=== PATIENT | female | born 1995 ===

== ENCOUNTER 2017-04-05 05:41 | Day surgery (SDC) | payer BC ==
--- NOTE | 2017-04-04 11:46 | History and Physical Report ---
DATE OF ADMISSION: 04/05/2017 REASON FOR ADMISSION: Outpatient surgery for removal of gallbladder. FINDINGS AND INDICATIONS: The patient is a 21-year-old female, who had a severe episode of epigastric and right upper quadrant abdominal pain on 03/15/2017 of this year. At that point, she was taken to [facility] Emergency room, where some pain medications were given and the patient felt better. An abdominal ultrasound was done, which revealed multiple gallstones, a normal gallbladder wall and a normal size common bile duct. There is no history of jaundice or dark urine. The patient was then advised by her attending physician, to go see a general surgeon and at that time, she and her mother came to the office to see me and I explained to them the indications, risks, benefits, possible complications, possible need for open procedure and the possible need for further procedures should there be any complications and they consented. PAST MEDICAL HISTORY: Pertinent for bipolar disorder. MEDICATIONS: [place], Lamictal and Wellbutrin. ALLERGIES: None, but she is sensitive to Dilaudid, which causes severe nausea and vomiting. REVIEW OF SYSTEMS: HEENT: No headaches or tinnitus. No dysphagia. Cardiopulmonary: No history of chest pain, shortness of breath, cough or sputum production. Gastrointestinal: As above, no reflux symptoms. No diarrhea or constipation. Genitourinary: No dysuria or hematuria. PHYSICAL EXAMINATION: VITAL SIGNS: Blood pressure was 118/70, temperature is 97.8 degrees, pulse is 68, and respirations 18. GENERAL: The patient is a well developed, well nourished, somewhat anxious young female, in no distress. HEENT: Pupils are equal and reactive to light and accommodation. Extraocular movements are intact. No scleral icterus. The mouth and throat are clear. NECK: Supple. The lungs are clear to auscultation. BREASTS: Normal. No masses. ABDOMEN: Soft and flat. There is no abdominal tenderness or mass. No groin adenopathy or hernia. GENITALIA: Deferred. RECTAL: Deferred. EXTREMITIES: Good range of motion. No edema or cyanosis. IMPRESSION: 1. Cholelithiasis with recent severe biliary colic, possible chronic cholecystitis. 2. Bipolar disorder. PLAN: The patient is admitted to undergo an outpatient laparoscopic cholecystectomy, possible open. She and her mother both understand the indications, risks, benefits, possible complications, and they wish to proceed. William Ma M.D. DR: Fay JOB#: [id number] CC:
[2017-04-05] VITALS (10 sets, daily range): BP systolic 105–144; BP diastolic 60–86
[~2017-04-05] VITALS: Ht 165.1 cm; Wt 74.8 kg
[2017-04-05] MEDS ORDERED: LAMICTAL200 MG ORAL (06:21)
[2017-04-05] MEDS ORDERED: LITHIUM CARBON300 M4 PO (06:21)
[2017-04-05] MEDS ORDERED: TAYTULLA 1 MG-1 EACH PO (06:21)
[2017-04-05] MEDS ORDERED: WELLBUTRIN SR150 M1 PO (06:21)
[2017-04-05] MEDS ORDERED: fentaNYL 250mcg/5ml ONE (07:00)
[2017-04-05] MEDS ORDERED: Ketorolac 30mg Inj ONE (07:00)
[2017-04-05] MEDS ORDERED: Nimbex 2mg/ml Inj 10ML IVP ONE (07:00)
[2017-04-05] MEDS ORDERED: LR 1000ml ONE (07:00)
[2017-04-05] MEDS ORDERED: Metoclopramide 10mg/2ml Inj ONE (07:00)
[2017-04-05] MEDS ORDERED: Dexamethasone 4mg/ml vial ONE (07:00)
[2017-04-05] MEDS ORDERED: Midazolam 2mg/2ml Inj ONE (07:00)
[2017-04-05] MEDS ORDERED: Lidocaine 1% MPF 10mg/ml 5ml ONE (07:00)
[2017-04-05] MEDS ORDERED: Glycopyrrolate 0.2mg/ml 1ml Vial ONE (07:00)
[2017-04-05] MEDS ORDERED: Propofol 10mg/ml 20ml IV ONE (07:00)
[2017-04-05] MEDS ORDERED: Neostigmine 1mg/ml 10ml Inj ONE (07:00)
[2017-04-05] MEDS ORDERED: NS Irrig 1000ml ONE (07:00)
[2017-04-05] MEDS ORDERED: Sterile Water Irrig 1000ml IRRIG ONE (07:00)
--- NOTE | 2017-04-05 07:09 | Pre-Procedure Note/Attestation ---
Pre-Procedure Note/Attestation Complete Prior to Procedure Procedure Narrative: laparoscopic cholecystectomy, possible open Indications for Procedure Pre-Operative Diagnosis: cholelithiasis, biliary colic Attestation I attest that I discussed the nature of the procedure; its benefits; risks and complications; and alternatives (and the risks and benefits of such alternatives ), prior to the procedure, with the patient (or the patient's legal outside medical sales representative). I attest that, if there was a reasonable possibility of needing a blood transfusion, the patient (or the patient's legal outside medical sales representative) was given the [facility] standardized written summary, pursuant to the [place] Blood Safety Act ([place] Health and Safety Code # 1645, as amended). I attest that I re-evaluated the patient just prior to the surgery and that there has been no change in the patient's H&P, except as documented below: TEQUILA TAYLOR April 05, 2017 07:09
[2017-04-05] MEDS ORDERED: Bupivacaine w/Epi 0.25% 30ml Vial INJ ONE (07:12)
[2017-04-05] MEDS ORDERED: Isovue-M 300 15ml INJ ONE (07:12)
[2017-04-05] MEDS ORDERED: Lidocaine 1% Plain 30 ml INJ ONE (07:12)
[2017-04-05] MEDS ORDERED: LR 1000ml 1,000 ML IVLG SCH (07:54)
--- NOTE | 2017-04-05 07:54 | Anethesia Preoperative Eval ---
Anesthesia Pre-op PMH/ROS General Date of Evaluation: April 05, 2017 Anesthesiologist: Wilfredo ASA Score: ASA 2 Mallampati Score Class I : Soft palate, uvula, fauces, pillars visible Class II: Soft palate, uvula, fauces visible Class III: Soft palate, base of uvula visible Class IV: Only hard plate visible Mallampati Classification: Class II Surgeon: Anil Diagnosis: Acute cholecystitis Surgical Procedure: Laparoscopic cholecystectomy Anesthesia History: none Family History: no anesthesia problems Allergies: Coded Allergies: No Known Allergies (Unverified , 04/04/17) Medications: see eMAR Past Medical History Cardiovascular: Denies: CAD, HTN, [place], arrhythmia, other, valve dz Pulmonary: Denies: COPD, MARRY, asthma, other Gastrointestinal/Genitourinary: Denies: CRI, ESRD, GERD, other Neurologic/Psychiatric: Reports: depression/anxiety, other - Bipolar, Denies: CVA, TIA, dementia Endocrine: Denies: DM, hypothyroidism, other, steroids HEENT: Denies: NOME (L), NOME (R), cataract (L), cataract (R), glaucoma, other Hematology/Immune: Denies: DVT, anemia, bleeding disorder, other Musculoskeletal/Integumentary: Denies: DDD, DJD, OA, RA, edema, other PSxH Narrative: Denies Anesthesia Pre-op Phys. Exam Physician Exam Last Vital Signs Date Time Temp Pulse Resp B/P Pulse Ox O2 Delivery O2 Flow Rate FiO2 04/05/17 06:26 98.1 77 18 130/85 96 Room Air Constitutional: NAD Cardiovascular: RRR Respiratory: CTA Airway Exam Mallampati Score: Class II MO: full ROM: full Teeth: intact Anesthesia Pre-op A/P Labs see chart Urine Test Test 04/05/17 05:55 Urine HCG, Qualitative Negative Risk Assessment & Plan Assessment: ASA II Plan: GA Status Change Before Surgery: No Pre-Antibiotics Drug: Ancef 1g Given Within 1 Hr of Incision: Yes Time Given: 07:30 KIA LEONARD M.D. April 05, 2017 07:54
[2017-04-05] MEDS ORDERED: Metoclopramide 10mg/2ml Inj IVP PRN (08:00)
[2017-04-05] MEDS ORDERED: Hydromorphone 0.5mg/0.5ml inj IVP PRN (08:00)
[2017-04-05] MEDS ORDERED: LORazepam Inj 2mg/ml 1ml IV PRN (08:00)
[2017-04-05] MEDS ORDERED: fentaNYL 100 mcg/2 mL IV PRN (08:00)
[2017-04-05] MEDS ORDERED: Midazolam 2mg/2ml Inj IVP PRN (08:00)
[2017-04-05] MEDS ORDERED: DiphenhydrAMINE 50mg/ml Inj IVP PRN (08:00)
[2017-04-05] MEDS ORDERED: Ketorolac 30mg Inj IV PRN (08:00)
--- NOTE | 2017-04-05 08:28 | Immediate Post-Op Evaluation ---
Immediate Post-Op Evalulation Immediate Post-Op Evalulation Procedure: Laparoscopic cholecystectomy Date of Evaluation: April 05, 2017 Time of Evaluation: 08:29 IV Fluids: 600 Blood Products: 0 Estimated Blood Loss: min Urinary Output: 0 Blood Pressure Systolic: 110 Blood Pressure Diastolic: 60 Pulse Rate: 89 Respiratory Rate: 16 O2 Sat by Pulse Oximetry: 100 Temperature (Fahrenheit): 97.9 Pain Score (1-10): 0 Nausea: No Vomiting: No Complications 0 Patient Status: awake, reacts, patent, none Hydration Status: adequate Drug: Ancef 1g Given Within 1 Hr of Incision: Yes - 0730 Time Given: 07:30 KIA LEONARD M.D. April 05, 2017 08:28
--- NOTE | 2017-04-05 08:31 | Brief Operative Note ---
Immediate Post Operative Note Operative Note Pre-op Diagnosis: cholelithiasis, biliary colic Procedure: laparoscopic cholecystectomy Post-op Diagnosis: same as pre-op Findings: other - several gallstones Surgeon: arielle Anesthesiologist: malinda Anesthesia: general Specimen: yes - GB Complications: none Condition: stable Estimated Blood Loss: minimal Drains: none Implant(s) used?: No TEQUILA TAYLOR April 05, 2017 08:31
--- NOTE | 2017-04-05 10:40 | 48 Hour Post Anesthesia Eval ---
Post Anesthesia Evaluation Procedure: Laparoscopic cholecystectomy Date of Evaluation: April 05, 2017 Time of Evaluation: 10:05 Blood Pressure Systolic: 119 0: 76 Pulse Rate: 77 Respiratory Rate: 20 Temperature (Fahrenheit): 98.0 O2 Sat by Pulse Oximetry: 95 Airway: patent Nausea: No Vomiting: No Pain Intensity: 1 Hydration Status: adequate Cardiopulmonary Status: at baseline Mental Status/LOC: patient returned to baseline Post-Anesthesia Complications: 0 Follow-up care needed: ready to discharge KIA LEONARD M.D. April 05, 2017 10:40
--- NOTE | 2017-04-05 12:17 | Operative Note - Dictated ---
DATE OF OPERATION: 04/05/2017 SURGEON: William Ma M.D. ALUMINUM BOAT INSPECTOR: Louisa Bueno M.D. ANESTHESIOLOGIST: ANESTHESIA: General endotracheal tube. PREOPERATIVE DIAGNOSES: 1. Cholelithiasis and recent severe biliary colic requiring emergency room visits. POSTOPERATIVE DIAGNOSES: 1. Cholelithiasis and recent severe biliary colic requiring emergency room visits. NAME OF OPERATION: Laparoscopic cholecystectomy. FINDINGS AND INDICATIONS: The patient is a very pleasant 21-year-old female, who came to see me at the office [id number] weeks ago with complaints of severe attack of right upper quadrant and epigastric pain, which was significant enough for her to have to go to the emergency room at [facility]. At that point, an abdominal ultrasound revealed multiple gallstones and the patient's pain resolved with the IV analgesics and oral analgesics and she went home on a low-fat diet. She came to see me at the office with her mother. We had an extensive conversation with diagrams and explanations about the indications, risks, benefits, possible complications, possible need for open procedure and she consented. At the time of the operation, the gallbladder was not inflamed, had multiple tiny stones, a small cystic duct and a normal size common bile duct. The rest of the exploration was completely normal. DESCRIPTION OF PROCEDURE: With the patient lying in the supine position on the operating table, under general anesthesia with the entire abdominal region prepped and draped in usual sterile fashion with chlorhexidine, an umbilical incision was made in the upper crease, subcutaneous tissues divided, the 5 mm trocar was advanced through which a laparoscope was placed visualizing the above findings. A separate 11 mm trocar was placed in the subxiphoid area and two 5-mm trocars in the right mid abdomen and the right upper quadrant for dissecting gallbladder fundus and body were placed on traction. Retrograde dissection of the gallbladder was then continued isolating the cystic duct and the cystic artery both of which were double clamped, and transected. The gallbladder was removed and off of the liver bed by blunt and sharp means obtaining hemostasis with the cautery. The specimen was then placed into an Endo catch device and removed through the subxiphoid incision after evacuating the bile. The specimen was sent to pathology. The subhepatic and subdiaphragmatic areas were then irrigated with ample amounts of normal saline. Hemostasis was double checked, which was adequate with the cautery and at this point, the CO2 was deflated. The trocars were removed and the incision was closed with 0 Vicryl fascial sutures and 4-0 Vicryl subcuticular sutures and Steri-Strips. Marcaine 0.5% with epinephrine 30 mL was injected for long-acting local anesthetic. The patient tolerated the procedure well. ESTIMATED BLOOD LOSS: Less than 5 mL. COUNTS: Sponge and needle counts were correct. She went to the recovery room in stable condition. William Ma M.D. DR: Fay JOB#: [id number] CC: FUAD
[2017-04-05] MEDS ORDERED: Tylenol #3 tab (300mg/30mg) ORAL PRN (15:00)
[2017-04-05] MEDS ORDERED: Morphine Sulfate 2mg/ml Inj IVP PRN (15:00)
== END 2017-04-05 11:05 | disposition home or self-care (01) ==
LOC: SUR 05:41
DX: K80.10 Calculus of gallbladder with chronic cholecystitis without obstruction (principal); K82.4 Cholesterolosis of gallbladder; F31.9 Bipolar disorder, unspecified; F41.9 Anxiety disorder, unspecified
CPT/HCPCS: 47562; 81025; J0690; J1100; J1885; J2250; J2405; J2704; J2710; J2765; J3010; J7120; 94003; 94150